=== PATIENT | female | born 1965 | race Caucasian/White ===

== ENCOUNTER 2018-01-31 14:25 | Emergency (ER) | payer MEDICAID ==
[2018-01-31] MEDS ORDERED: Bupivacaine 0.25% 10 ML SDV INJECT ONE (15:12)
--- NOTE | 2018-01-31 17:03 | EDM.PDOC ---
ED HPI GENERAL MEDICAL PROBLEM - General Chief Complaint: Lower Extremity Injury/Pain Stated Complaint: LEFT LITTLE TOE Time Seen by Provider: 01/31/18 16:50 Source of Information: Reports: Patient History Limitations: Reports: No Limitations - History of Present Illness INITIAL COMMENTS - FREE TEXT/NARRATIVE: This 52 yo female patient reports to the ED with left small toe pain. The patient reports she was doing laundry when she hit her toe on a safe, noticed increased pain and swelling in her foot as well as some deformity. Onset: Today Duration: Minutes: Location: Reports: Lower Extremity, Left Quality: Reports: Ache Severity: Moderate Improves with: Reports: None Worsens with: Reports: None Context: Reports: Other Associated Symptoms: Reports: No Other Symptoms Left Feet Pain Score (Numeric/FACES): 6 - Related Data Allergies Allergy/AdvReac Type Severity Reaction Status Date / Time Sulfa (Sulfonamide Allergy Cannot Verified 01/31/18 14:35 Antibiotics) Remember Home Meds: Home Meds Levothyroxine Sodium [Synthroid] 100 mcg PO DAILY 01/31/18 [History] Past Medical History Endocrine/Metabolic History: Reports: Hypothyroidism Social & Family History - Tobacco Use Smoking Status *Q: Current Every Day Smoker Years of Tobacco use: 20 Packs/Tins Daily: 0.5 - Recreational Drug Use Recreational Drug Use: No Review of Systems - Review of Systems Review Of Systems: ROS reveals no pertinent complaints other than HPI. ED EXAM, GENERAL - Physical Exam Exam: See Below Exam Limited By: No Limitations General Appearance: Alert, WD/WN, No Apparent Distress Eye Exam: Bilateral Eye: EOMI, Normal Inspection, PERRL Ears: Normal External Exam, Normal Canal, Hearing Grossly Normal, Normal TMs Nose: Normal Inspection, Normal Mucosa, No Blood Throat/Mouth: Normal Inspection, Normal Lips, Normal Teeth, Normal Gums, Normal Oropharynx, Normal Voice, No Airway Compromise Head: Atraumatic, Normocephalic Neck: Normal Inspection, Supple, Non-Tender, Full Range of Motion Respiratory/Chest: No Respiratory Distress, Lungs Clear, Normal Breath Sounds, No Accessory Muscle Use, Chest Non-Tender Cardiovascular: Normal Peripheral Pulses, Regular Rate, Rhythm, No Edema, No Gallop, No JVD, No Murmur, No Rub GI/Abdominal: Normal Bowel Sounds, Soft, Non-Tender, No Organomegaly, No Distention, No Abnormal Bruit, No Mass (Female) Exam: Deferred Rectal (Female) Exam: Deferred Extremities: Other (left 5th toe deformity) Neurological: Alert, Oriented, CN II-XII Intact, Normal Cognition, Normal Gait, Normal Reflexes, No Motor/Sensory Deficits Psychiatric: Normal Affect, Normal Mood Skin Exam: Warm, Dry, Intact, Normal Color, No Rash Lymphatic: No Adenopathy ED TRAUMA EXTREMITY PROCEDURES - Joint Reduction Site: Other (left 5th toe) Sedation: Digital Block Local Anesthesia - Bupivicaine (Marcaine): 0.25% Plain Local Anesthetic Volume: 5cc Pre-Procedure NV Status: Normal Post-Procedure NV Status: Normal Technique: Traction/Counter Traction Number of Attempts: 2 Post-Reduction Imaging: Acceptably Reduced Joint Reduction Complications: No Course - Vital Signs Last Recorded V/S: Last Vital Signs Temp 36.6 C 01/31/18 14:36 Pulse 78 01/31/18 14:36 Resp 16 01/31/18 14:36 BP 169/70 H 01/31/18 14:36 Pulse Ox 99 01/31/18 14:36 - Orders/Labs/Meds Meds: Medications Discontinued Medications Generic Name Dose Route Start Last Admin Trade Name Freq PRN Reason Stop Dose Admin Bupivacaine HCl 10 ml 01/31/18 15:12 01/31/18 15:19 Sensorcaine-Mpf 0.25% INJECT 01/31/18 15:13 10 ml ONETIME ONE Administration - Re-Assessments/Exams Free Text/Narrative Re-Assessment/Exam: 01/31/18 17:06 Discussed the patient with Dr. Navarro (Podiatry). Dr. Navarro came to the ED to visit with the patient. Departure - Departure Time of Disposition: 17:07 Disposition: Home, Self-Care 01 Condition: Fair Clinical Impression: Fracture of fifth toe, left, closed Qualifiers: Encounter type: initial encounter Qualified Code(s): S92.502A - Displaced unspecified fracture of left lesser toe(s), initial encounter for closed fracture - Discharge Information Instructions: Toe Fracture, [id number] Care Plan Goals: The patient was advised of the examination and x-ray results during the visit. The patient's toe was aligned while in the ED. The patient should follow-up with Dr. Navarro as directed. If the patient has any additional symptoms or concerns, the patient should visit her primary care facility or return to the ED.
== END 2018-01-31 17:15 | disposition home or self-care (01) ==
LOC: DL.ED 14:25
DX: S92.512A Displaced fracture of proximal phalanx of left lesser toe(s), initial encounter for closed fracture (principal); F17.210 Nicotine dependence, cigarettes, uncomplicated; Z88.2 Allergy status to sulfonamides; W22.8XXA Striking against or struck by other objects, initial encounter; Y93.E2 Activity, laundry
CPT/HCPCS: 28515; 73660-T4; 99283

== ENCOUNTER 2022-02-10 14:32 | Emergency (ER) | payer MEDICAID ==
[2022-02-10] MEDS ORDERED: Aspirin 81 MG Tab.Chew PO ONE (15:53)
[2022-02-10 16:43] LABS: ANION GAP 13.6 mEq/L (7-13); CHLORIDE,CL 104 mmol/L (98-107); SODIUM,NA 142 mmol/L (136-145)
[2022-02-10 16:45] LABS: PTT,PARTIAL THROMBOPLSTIN TIME 24.3 SEC (22.0-34.0)
== END 2022-02-10 17:17 | disposition home or self-care (01) ==
LOC: DL.ED 14:32
DX: R07.89 Other chest pain (principal); E78.00 Pure hypercholesterolemia, unspecified; K21.9 Gastro-esophageal reflux disease without esophagitis; E03.9 Hypothyroidism, unspecified; E66.9 Obesity, unspecified; Z68.33 Body mass index [BMI] 33.0-33.9, adult; Z91.030 Bee allergy status; Z91.013 Allergy to seafood; Z88.2 Allergy status to sulfonamides; Z91.09 Other allergy status, other than to drugs and biological substances; Z79.899 Other long term (current) drug therapy; Z79.82 Long term (current) use of aspirin; Z72.0 Tobacco use
CPT/HCPCS: 36415; 71045; 80053; 83605; 84484; 85025; 85379; 85610; 85730; 87040; 93005; 93010; 99283; 99285-25; A9270-GY

== ENCOUNTER 2023-02-06 16:36 | Emergency (ER) | payer MEDICAID ==
[2023-02-06] MEDS ORDERED: Aspirin 81 MG Tab.Chew PO ONE (16:57)
[2023-02-06] MEDS ORDERED: Morphine 2 MG/ML SYRINGE IVPUSH ONE ×2 (16:58→18:52)
[2023-02-06 17:15] LABS: ANION GAP 13.8 mEq/L (7-13)
[2023-02-06] MEDS ORDERED: Ketorolac 30 MG/ML SDV IM ONE (20:17)
== END 2023-02-06 20:40 | disposition home or self-care (01) ==
LOC: DL.ED 16:36
DX: R07.81 Pleurodynia (principal); R07.89 Other chest pain; M51.24 Other intervertebral disc displacement, thoracic region; I16.0 Hypertensive urgency; E78.00 Pure hypercholesterolemia, unspecified; E03.9 Hypothyroidism, unspecified; E66.9 Obesity, unspecified; Z91.030 Bee allergy status; Z91.013 Allergy to seafood; Z88.2 Allergy status to sulfonamides; Z79.82 Long term (current) use of aspirin; Z79.899 Other long term (current) drug therapy; Z72.0 Tobacco use; Z68.41 Body mass index [BMI] 40.0-44.9, adult
CPT/HCPCS: 36415; 71045; 80053; 83690; 83735; 84484; 85025; 85379; 86140; 93005; 93010; 96372; 96374; 96376; 99284; 99285-25; A9270-GY; J1885; J2270

== ENCOUNTER 2023-02-08 05:16 | Emergency (ER) | payer MEDICAID ==
[2023-02-08] MEDS ORDERED: Sodium Chloride 0.9% 10 ML Syringe FLUSH PRN (05:33)
[2023-02-08] MEDS ORDERED: Labetalol 20 MG/4 ML Syringe IVPUSH ONE (05:34)
[2023-02-08] MEDS ORDERED: Lisinopril 10 MG Tab PO ONE (05:37)
[2023-02-08] MEDS ORDERED: Ketorolac 30 MG/ML SDV IM ONE (05:37)
== END 2023-02-08 06:35 | disposition home or self-care (01) ==
LOC: DL.ED 05:16
DX: R07.81 Pleurodynia (principal); R07.89 Other chest pain; M51.24 Other intervertebral disc displacement, thoracic region; I16.0 Hypertensive urgency; K21.9 Gastro-esophageal reflux disease without esophagitis; I10 Essential (primary) hypertension; E03.9 Hypothyroidism, unspecified; F17.210 Nicotine dependence, cigarettes, uncomplicated; E66.9 Obesity, unspecified; Z68.34 Body mass index [BMI] 34.0-34.9, adult; Z91.030 Bee allergy status; Z91.013 Allergy to seafood; Z88.2 Allergy status to sulfonamides; Z79.82 Long term (current) use of aspirin; Z79.899 Other long term (current) drug therapy
CPT/HCPCS: 93005; 93010; 96372; 96374; 99283; 99284; A9270; J1885; J3490

== ENCOUNTER 2023-05-12 12:20 | Emergency (ER) | payer MEDICAID ==
[2023-05-12] MEDS ORDERED: Lidocaine 1% 5 ML VIAL INJECT ONE (12:33)
[2023-05-12] MEDS ORDERED: Diphtheria,Pertussis(Acell),Tetanus Vaccine 0.5 ML Syringe IM ONE (12:36)
[2023-05-12] MEDS ORDERED: Bacitracin Oint 1 GM U/D Packet TOP ONE (12:36)
== END 2023-05-12 13:16 | disposition home or self-care (01) ==
LOC: DL.ED 12:20
DX: S61.216A Laceration without foreign body of right little finger without damage to nail, initial encounter (principal); I10 Essential (primary) hypertension; K21.9 Gastro-esophageal reflux disease without esophagitis; E03.9 Hypothyroidism, unspecified; M19.90 Unspecified osteoarthritis, unspecified site; E66.9 Obesity, unspecified; Z68.33 Body mass index [BMI] 33.0-33.9, adult; Z23 Encounter for immunization; Z79.82 Long term (current) use of aspirin; Z79.899 Other long term (current) drug therapy; Z91.013 Allergy to seafood; Z88.2 Allergy status to sulfonamides; Z91.048 Other nonmedicinal substance allergy status; Z91.030 Bee allergy status; W25.XXXA Contact with sharp glass, initial encounter; Y93.G1 Activity, food preparation and clean up
CPT/HCPCS: 12001; 90471; 90715; 99282; A9270; J3490

== ENCOUNTER 2024-05-29 16:05 | Emergency (ER) | payer MEDICARE, MEDICAID ==
[2024-05-29] MEDS ORDERED: Sodium Chloride 0.9% 10 ML Syringe FLUSH PRN (16:24)
[2024-05-29 16:36] LABS: BASOPHILS PERCENT AUTO 0.5 % (0.0-1.0); EOSINOPHILS PERCENT AUTO 2.1 % (1.0-3.0); HEMOGLOBIN 13.5 g/dL (12.0-16.0); LYMPHOCYTES PERCENT AUTO 32.1 % (20.5-50.1); MEAN CORPUSCULAR HEMOGLOBIN 29.9 pg (27.0-34.0); MEAN CORPUSCULAR HGB CONC 32.9 g/dL (33.0-35.0); MEAN CORPUSCULAR VOLUME 90.7 fL (80-100); MONOCYTES PERCENT AUTO 11.5 % (2-8); NEUTROPHILS PERCENT AUTO 53.8 % (42.2-75.2); PLATELET COUNT,PLT 280 10^3/uL (150-450); RED BLOOD CELL COUNT 4.52 10^6/uL (4.2-5.4); WHITE BLOOD CELL COUNT,WBC 9.2 10^3/uL (5.0-10.0)
[2024-05-29 16:56] LABS: PTT,PARTIAL THROMBOPLSTIN TIME 23.6 SEC (22.0-34.0)
[2024-05-29 17:00] LABS: LACTIC ACID 1.1 mmol/L (0.4-2.0)
[2024-05-29 17:23] LABS: A/G RATIO 1.1; ALANINE AMINOTRANSFERASE,ALT 45 U/L (14-59); ALKALINE PHOSPHATASE 102 U/L (46-116); ANION GAP 14.6 mEq/L (7-13); ASPARTATE AMNIOTRANSFERASE,AST 20 U/L (15-37); BILIRUBIN TOTAL 0.4 mg/dL (0.2-1.0); BLOOD UREA NITROGEN,BUN 16 mg/dL (7-18); BUN/CREATININE RATIO 17.4 (No establ ref range); C-REACTIVE PROTEIN 0.94 ng/dL (<=0.50); CALCIUM 9.6 mg/dL (8.5-10.1); CARBON DIOXIDE,CO2 27 mmol/L (21-32); CHLORIDE,CL 104 mmol/L (98-107); CREATININE 0.92 mg/dL (0.55-1.02); ESTIMATED GFR 73 mL/min (>=60); GLUCOSE RANDOM 136 mg/dL (70-99); MAGNESIUM 2.1 mg/dL (1.8-2.4); POTASSIUM,K 3.6 mmol/L (3.5-5.1); PROTEIN TOTAL,TP 7.5 g/dL (6.4-8.2); SODIUM,NA 142 mmol/L (136-145); TSH ULTRASENSITIVE 3.44 uIU/mL (0.36-3.74)
[2024-05-29 17:25] LABS: INR 0.9 (0.9-1.2); PROTHROMBIN TIME 9.4 SEC (9.0-12.0)
[2024-05-29] MEDS ORDERED: Ondansetron 4 MG/2 ML SDV IVPUSH ONE (17:41)
[2024-05-29] MEDS: Metoclopramide 10 MG/2 ML SDV IVPUSH ONE (17:43)
[2024-05-29] MEDS: Ketorolac 30 MG/ML SDV IVPUSH ONE (17:43)
[2024-05-29] MEDS: Sodium Chloride 0.9% 1,000 ML IV ONE (17:43)
[2024-05-29] MEDS: Meclizine 12.5 MG Tab PO ONE (17:43)
== END 2024-05-29 18:45 | disposition home or self-care (01) ==
LOC: DL.ED 16:05
DX: G43.809 Other migraine, not intractable, without status migrainosus (principal); R42 Dizziness and giddiness; I10 Essential (primary) hypertension; K21.9 Gastro-esophageal reflux disease without esophagitis; E03.9 Hypothyroidism, unspecified; Z90.49 Acquired absence of other specified parts of digestive tract; Z79.890 Hormone replacement therapy; Z79.82 Long term (current) use of aspirin; Z91.030 Bee allergy status; Z88.2 Allergy status to sulfonamides; Z91.013 Allergy to seafood; Z91.09 Other allergy status, other than to drugs and biological substances
CPT/HCPCS: 36415; 80053; 82607; 82947; 83605; 83735; 84145; 84443; 84484; 85025; 85610; 85730; 86140; 93005; 93010; 96361; 96374; 96375; 99284; A9270; J1885; J2765; J7030